=== PATIENT | female | born 1985 | race Caucasian/White ===

== ENCOUNTER 2022-09-30 16:31 | Observation (INO) | payer OTHER ==
[~2022-09-30] VITALS: Ht 152.4 cm; Wt 68.0 kg
[2022-09-30] MEDS ORDERED: TERBUTALINE SULFATE 1 MG/ML VIAL ONE (16:57)
[2022-09-30] MEDS ORDERED: TERBUTALINE SULFATE 1 MG/ML VIAL SUBCUT PRN (17:00)
[2022-09-30] MEDS ORDERED: AMOXICILLIN 500 MG CAPSULE PO ONE (18:00)
== END 2022-09-30 18:30 | disposition home or self-care (01) ==
LOC: UNDOADMOB 16:31 → SPU 16:31
PROVIDERS: ADMIT Obstetrics & Gynecology; ATTEND Obstetrics & Gynecology
DX: O62.9 Abnormality of forces of labor, unspecified (principal); O26.893 Other specified pregnancy related conditions, third trimester; R50.9 Fever, unspecified; Z3A.35 35 weeks gestation of pregnancy
CPT/HCPCS: 81002; G0379; J3105; G0378

== ENCOUNTER 2022-10-29 00:05 | Inpatient (IN) | payer OTHER ==
[~2022-10-29] VITALS: Ht 152.4 cm; Wt 70.8 kg
[2022-10-29] MEDS ORDERED: NALBUPHINE HCL 10 MG/ML AMP IVP PRN (00:45)
[2022-10-29] MEDS ORDERED: OXYTOCIN/0.9 % SODIUM CHLORIDE 1,000 ML IV SCH (00:45)
[2022-10-29] MEDS ORDERED: LR 1,000 ML IV SCH (00:45)
[2022-10-29] MEDS ORDERED: TERBUTALINE SULFATE 1 MG/ML VIAL SUBCUT ONE (00:45)
[2022-10-29 01:16] VITALS: BP_SYST 116
[2022-10-29 01:16] LABS: BASOPHILS % (AUTO) 0.2 % (0.0-2.0); EOSINOPHILS # (AUTO) 0.3 K/uL (0.0-0.4); EOSINOPHILS % (AUTO) 1.9 % (0.0-4.0); HEMATOCRIT 25.3 % (36-48); HEMOGLOBIN 7.8 g/dL (12.0-16.0); LYMPHOCYTES # (AUTO) 3.5 K/uL (1.0-5.5); LYMPHOCYTES % (AUTO) 19.7 % (20.5-51.5); MEAN CORPUSCULAR HEMOGLOBIN 21 pg (27-31); MEAN CORPUSCULAR HGB CONC 31 % (32-36); MEAN CORPUSCULAR VOLUME 68 fL (79.0-98.0); MONOCYTES % (AUTO) 5.8 % (1.7-9.3); NEUTROPHILS # (AUTO) 12.8 K/uL (1.8-7.7); NEUTROPHILS % (AUTO) 72.4 % (40.0-70.0); PLATELET COUNT (AUTO) 237 K/uL (130-430); RED BLOOD CELL COUNT(AUTO) 3.72 MIL/uL (4.2-6.2); RED CELL DISTRIBUTION WIDTH 18.5 % (9.0-15.0); WHITE BLOOD COUNT (AUTO) 17.6 K/uL (4.8-10.8)
[2022-10-29] MEDS ORDERED: ROPIVACAINE HCL/PF 0.2% 200 ML ONE ×2 (02:18→17:13)
[2022-10-29] MEDS ORDERED: fentaNYL CITRATE/PF 100 MCG/2 ML AMP ONE ×2 (02:18→17:13)
[2022-10-29] MEDS ORDERED: LR 500 ML IV ONE (03:45)
[2022-10-29] MEDS ORDERED: FENT2mCg/mL-ROPIVA0.2%/NS EPID 200 ML EP SCH (03:45)
[2022-10-29] MEDS ORDERED: METOCLOPRAMIDE HCL 10 MG/2 ML VIAL IVP PRN (11:00)
[2022-10-29] MEDS ORDERED: LIGHT MINERAL OIL 10 ML VIAL MC ONE (18:58)
[2022-10-29] MEDS ORDERED: LIDOCAINE PF 1% 30ML(POUR BTL) INJ ONE (18:58)
[2022-10-29] MEDS ORDERED: NALOXONE HCL 0.4 MG/ML AMP (NARCAN) ONE (18:59)
[2022-10-29] MEDS ORDERED: HYDROcodone/ACETAMIN 5-325 MG TAB (NORCO/ VICODIN) PO PRN (20:00)
[2022-10-29] MEDS ORDERED: OXYCODONE/ACETAMINOPHEN 5-325 TABLET PO PRN (20:00)
[2022-10-29] MEDS ORDERED: METHYLERGONOVINE MALEATE 0.2 MG/ML AMP ONE (20:39)
[2022-10-29] MEDS ORDERED: OXYTOCIN 10 UNIT/ML VIAL ONE (20:40)
[2022-10-29] MEDS ORDERED: miSOPROStoL 200 MCG TABLET (CYTOTEC) ONE (20:40)
[2022-10-29] MEDS ORDERED: OXYTOCIN 10 UNIT/ML VIAL IM ONE (21:30)
[2022-10-29] MEDS ORDERED: METHYLERGONOVINE MALEATE 0.2 MG/ML AMP IM ONE (21:30)
[2022-10-29] MEDS ORDERED: ONDANSETRON HCL 4 MG/2 ML VIAL ONE (22:24)
[2022-10-29] MEDS ORDERED: ONDANSETRON HCL 4 MG/2 ML VIAL IVP PRN (22:30)
[2022-10-29] MEDS: OXYCODONE/ACETAMINOPHEN 5-325 TABLET PO PRN (23:30)
[2022-10-30] MEDS: OXYCODONE/ACETAMINOPHEN 5-325 TABLET PO PRN (00:30)
[2022-10-30 07:36] LABS: HEMOGLOBIN 10.1 g/dL (12.0-16.0)
[2022-10-30] MEDS ORDERED: DOCUSATE SODIUM 100 MG CAPSULE PO SCH (09:00)
--- NOTE | 2022-10-30 11:30 | NUR ---
WOUND EVALUATION: Wound Consult received from Dr. Federico Olivarez. Thank you, Dr. Olivarez, for the consult. Patient received in OB-2, awake, alert, and oriented. Patient is able to turn in bed independently. Patient admitted at 0000 on 10/29/2022, scheduled for induction. Epidural started at 0300, baby delivered at 2043 on 10/29/2022 (on epidural with labor for more than 17 hours). Past Medical History: Grand Multiparity, Anemia (Hgb 7.8 on admission). Patient is 9, Term 9 per nurse report. Recent Labs: WBC 17.6, RBC 3.72, hemoglobin 7.8, hematocrit 25.3. No microbiology reports. Intrinsic factors that delay wound healing: Anemia. Extrinsic factors that delay wound healing: Decreased mobility. Patient received 2 units of RBC's on 10/29/2022 (1 unit transfused at 0734, second unit transfused at 1135). Anemia with hemoglobin of 7.8 along with epidural and lung labor contributed towards development of pressure injury. Wound Assessment: 1. Buttocks/Intergluteal Cleft: Stage 1 Pressure Injury. Skin is intact. No weeping or drainage. Area has slight calor, and non-blanchable red erythema. Site is not soft or boggy. Involved area appears to have decreased in size. Site measures 12.5 cm x 11.5 cm. Recommend: Cleanse wound with mild soap and water. Pat dry. Cover site with Sacral foam dressing for protection. Perform site care daily, and as needed for dressing soiling or dislodgement. Also recommend: Encourage and assist patient as needed with repositioning side to side only every hour with 1 pillow underneath trunk and 1 pillow underneath pelvis (involved area should be floating, you should be able to slide hand freely underneath pelvic area). Off-load pressure areas with pillows for pressure re-distribution. When sitting, alternate pillow from left pelvis to right pelvis, switching sides every hour. Offload, elevate and float bilateral heels with pillows. Perform skin care and monitor skin integrity Q shift. Use moisture barrier cream on buttocks and other moisture susceptible areas QID and as needed for soiling. Place patient on a low air-loss mattress. Spoke with patient and her spouse, and informed them that the patient had a Stage I pressure injury. Charge nurse will inform Dr. Olivarez.
[2022-10-30] MEDS: IBUPROFEN 800 MG TABLET PO PRN ×2 (13:32→20:00)
== END 2022-10-31 10:21 | disposition home or self-care (01) | DRG 560 ==
LOC: SPU 00:05
PROVIDERS: ADMIT Obstetrics & Gynecology; ATTEND Obstetrics & Gynecology
PROC: 10E0XZZ Delivery of Products of Conception, External Approach (ICD-10-PCS; principal; 2022-10-29)
PROC: 10907ZC Drainage of Amniotic Fluid, Therapeutic from Products of Conception, Via Natural or Artificial Opening (ICD-10-PCS; 2022-10-29)
PROC: 3E0R3BZ Introduction of Anesthetic Agent into Spinal Canal, Percutaneous Approach (ICD-10-PCS; 2022-10-29)
PROC: 00HU33Z Insertion of Infusion Device into Spinal Canal, Percutaneous Approach (ICD-10-PCS; 2022-10-29)
PROC: 30233N1 Transfusion of Nonautologous Red Blood Cells into Peripheral Vein, Percutaneous Approach (ICD-10-PCS; 2022-10-29)
DX: O69.81X0 Labor and delivery complicated by cord around neck, without compression, not applicable or unspecified (principal); Z37.0 Single live birth; D64.9 Anemia, unspecified; O99.02 Anemia complicating childbirth; Z3A.39 39 weeks gestation of pregnancy
CPT/HCPCS: 36415; 81002; 85018; 85025; 86592; 86886; 86900; 86901; 86920; 94760; J2001; J2210; J2310; J2405; J2590; J2765; J3010; P9021